=== PATIENT | male | born 1995 | race Caucasian/White ===

== ENCOUNTER 2024-06-09 03:53 | Observation (INO) | payer SELFPAY ==
[2024-06-09] VITALS (16 sets, daily range): BP systolic 113–187; BP diastolic 60–102; PULSE 64–103; RESP 16–20; TEMP 36.3–37.2; O2SAT 91–100; BMI 39.6; BMI 38.7
[2024-06-09 04:22] LABS: Absolute Neutrophil Count 12.8 X10^3/uL (2.0-7.7); Basophil# 0.12 X10^3/uL; Basophil% 0.7 % (0-1); Eosinophil# 0.28 X10^3/uL; Eosinophils% 1.7 % (0-5); Hematocrit 44.6 % (40-54); Hemoglobin 14.8 g/dL (13.0-16.5); Lymphocyte % 11.4 % (19-41); Mean Corp Hgb Conc 33.2 g/dL (32-36); Mean Corpuscular Hgb 28.4 pg (27.0-32.0); Mean Corpuscular Volume 85.4 fL (80-94); Mean Platelet Vol. 10.8 fl (6.2-12.0); Monocyte# 1.47 X10^3/uL; Monocyte% 8.8 % (0-10); NRBC Flagged by Analyzer 0 % (0-5); Neutrophil # 12.75 X10^3/uL (2.7-7.7); Neutrophil % 76.7 % (47-70); Platelet Count 317 K/mm3 (150-450); RBC Distribution Width SD 39.7 fl (35.1-43.9); Red Blood Count 5.22 M/mm3 (4.6-6.2); White Blood Count 16.6 K/mm3 (4.4-11.0)
[2024-06-09 04:23] LABS: Mucous, Urine 0 SEEN /hpf (<or=2+); Red Blood Cells-Urine 0 SEEN /hpf (0-5); Squamous Epithelial Cells - UA 0 SEEN /hpf (0-5)
[2024-06-09] MEDS: 0.9% Normal Saline (1000mL) 1,000 ML 999 ML IV (04:24)
[2024-06-09] MEDS: Ketorolac 30 MG/ML Syringe IV (04:24)
[2024-06-09 04:25] LABS: Color, Urine Yellow (Yellow); Glucose, Dipstick Normal (Normal); Ketone-Dipstick Negative (Negative); Leukocyte Esterase-Dipstick Negative /ul (Negative); Nitrite-Dipstick Negative (Negative); Occult Blood-Urine Negative /ul (Negative); Protein-Dipstick Negative (Negative); Specific Gravity, Urine 1.015 (1.002-1.030); Urine Bilirubin Dipstick Negative (Negative); Urine Clarity Clear (Clear); Urine Urobilinogen Normal (Normal)
--- NOTE | 2024-06-09 04:32 | CT_ITS ---
PROCEDURE: CT ABDOMEN AND PELVIS WITH INTRAVENOUS CONTRAST REASON FOR EXAM: RIGHT LOWER QUADRANT PAIN TECHNIQUE: Contiguous axial scans of 2.5 mm slice thicknesses. Sagittal and coronal reconstruction images were obtained. One or more dose reduction techniques were used (e.g., automated exposure control, adjustment of mA and/or kv according to patient size, use of iterative reconstruction technique). IV CONTRAST: ISOVUE 370, 94 ML COMPARISON: None. FINDINGS: Lung bases: Mild hypoventilatory changes dependently. Liver: Unremarkable. Gallbladder: Unremarkable. Spleen: Unremarkable. Pancreas: Unremarkable. Adrenals: Unremarkable. Kidneys: Unremarkable. Bladder: Unremarkable. Reproductive Organs: Unremarkable. Bowel: Mild diverticulosis in the sigmoid. Appendix: Appendix measures 0.9 cm in diameter, axial image 133, coronal image 63. no periappendiceal inflammation or abscess. Lymph nodes: No suspicious lymph node enlargement. Vasculature: Major vascular structures are unremarkable. Peritoneum / Retroperitoneum: No ascites. No free air. Bones: Unremarkable. CT/Abdomen/Pelvis W IV Cont ONLY IMPRESSION: 1. MAXIMUM DIAMETER OF THE APPENDIX IS 0.9 CM. THIS RAISES CONCERN FOR MILD A PPENDICITIS. 2. MILD DIVERTICULOSIS. Reading Location: [facility]
[2024-06-09 04:35] LABS: Anion Gap 8 (5-15); BUN 9 mg/dL (7-18); BUN/Creat Ratio 9.3 RATIO (10-20); Calcium,Total 9.4 mg/dL (8.5-10.1); Chloride 104 mmol/L (98-107); Creatinine, Serum 0.97 mg/dL (0.70-1.30); EST Glomerular Filtration Rate 98 mL/min (>60); Est Glom Filt Rate - Afr Amer 119 mL/min (>60); Estimated Creatinine Clearance 137.24 ml/min; Glucose 87 mg/dL (74-106); Potassium 3.6 mmol/L (3.5-5.1); Sodium Level 137 mmol/L (136-145)
[2024-06-09 05:39] LABS: White Blood Cells 0-5 SEEN /hpf (0-5)
[2024-06-09 05:40] LABS: Bacteria RARE /hpf (None Seen)
--- NOTE | 2024-06-09 06:53 | EDS_ITS ---
HPI History of Present Illness Chief Complaint: Abd Pain Informant: patient and spouse/S.O. Narrative Narrative: Patient is a 29-year-old male with no significant past medical history. He states he went to bed normally on Friday night and then awoke around 1 AM Friday morning with sharp pain in the right lower abdomen. He states that there has been no recent trauma or excessive activity. He denies any hematuria or dysuria. He states has been no fevers or chills. He reports that he waited a few hours at home to see if the pain would resolve but it did not do so and secondary to this he comes in for evaluation. [facility] Medical History no medical history no medical history Home Medications ?Medication ?Instructions ?Recorded ?Last Taken ?Type NK 06/09/24 Unknown History Allergy/AdvReac Type Severity Reaction Status Date / Time No Known Allergies Allergy Verified 06/09/24 03:53 Family History (Updated 06/09/24 @ 03:56 by Josh Nesbitt) Other Diabetes Surgical History no surgical history Social History Smoking Status: Never smoker [facility] ED Constitutional Constitutional ED: Denies chills or fever(s) ENT ENT ED: Denies sore throat Cardiovascular Cardiovascular: Denies chest pain Respiratory/Chest Respiratory/Chest: Denies cough or dyspnea Gastrointestinal Gastrointestinal: Reports abdominal pain; Denies diarrhea, nausea or vomiting Genitourinary Genitourinary ED: Denies dysuria or hematuria Musculoskeletal Musculoskeletal: Denies back pain Integumentary Denies rash Neurologic Neurologic: Denies headache(s) Hematologic/Lymphatic Hematologic/Lymphatic: Denies easy bleeding or easy bruising EXAM Physical Exam Const Vital Signs: 06/09/24 03:53 06/09/24 05:49 Temperature 97.8 F Temperature Source Oral Pulse Rate 98 70 Respiratory Rate 18 19 H Blood Pressure 150/91 H 187/92 H Blood Pressure Mean 110 123 Pulse Ox 96 99 Oxygen Delivery Method Room Air Room Air Positive well nourished, well developed and obese General Appearance ED: well developed; Negative for pallor Nutritional Appearance: obese HEENT Reports moist mucous membranes HEENT Narrative: No signs of infection noted in the posterior pharynx Eyes PERRL and EOMs intact bilaterally General Eye ED: Negative for scleral icterus Neck supple Resp normal respiratory effort and clear to auscultation bilaterally Cardio regular rate and regular rhythm Rate: other Other Details: Heart is regular rate and rhythm without murmurs rubs or gallops Radial and carotid pulses are equal and symmetric GI non-distended and no masses GI Narrative: Abdomen is soft and nondistended with normal active bowel sounds. There is pain with palpation in the right mid and lower abdomen over McBurney's point. There is voluntary guarding at this site. Negative heel strike but positive psoas sign. No pulsatile mass Auscultation: normoactive bowel sounds Palpation: soft Back/Spine Back/Spine Narrative: Mild right CVA pain noted Extremity normal to inspection Neuro oriented x3, CN's II-XII intact bilaterally and no sensory deficits noted Sensorium / Orientation: alert Motor Exam: strength 5/5 throughout Psych mental status grossly normal Skin no rashes or lesions noted and no wounds General Skin Exam: Negative for jaundice or pallor MDM MDM MDM Narrative Medical decision making narrative: Patient presented to the ER hypertensive otherwise stable vitals. He reported pain beginning at 1 AM in the right side of his abdomen. Differential diagnosis is for acute appendicitis versus atypical biliary colic versus pancreatitis versus UTI versus kidney stone. Secondary to his basic labs were obtained as well as a urine sample. Urine sample showed no sign of infection or blood going against kidney stone and pyelonephritis or UTI. The white count was elevated at 16 and he does have left shift with elevation to the neutrophil count at 13. Therefore with concern for developing infection a CT with IV contrast was ordered. This showed that his appendix is at the upper limit of normal and there is concern for mild early appendicitis. Secondary to this the case was discussed with general surgeon Dr. Hills. He will evaluate the patient in the ER to decide on disposition. After he was evaluated in the ER Dr. Hills feels that admission for appendectomy is the most appropriate plan of care and therefore he will be started on Zosyn and admitted to the general surgery service for further care History & Record Review Discussion w/independent historian: Patient and Significant other Lab Data Attestation: I reviewed the patient's lab results. Labs: Laboratory Results - last 24 hr 06/09/24 06/09/24 04:02 04:12 WBC 16.6 H RBC 5.22 Hgb 14.8 Hct 44.6 MCV 85.4 MCH 28.4 MCHC 33.2 RDW Std Deviation 39.7 RDW Coeff of Josephine 13.0 Plt Count 317 MPV 10.8 Immature Gran % (Auto) 0.700 Neut % (Auto) 76.7 H Lymph % (Auto) 11.4 L Jasper % (Auto) 8.8 Eos % (Auto) 1.7 Baso % (Auto) 0.7 Absolute Neuts (auto) 12.8 H Absolute Lymphs (auto) 1.90 Nucleated RBC % 0 Sodium 137 Potassium 3.6 Chloride 104 Carbon Dioxide 25.0 Anion Gap 8 BUN 9 Creatinine 0.97 Estim Creat Clear Calc 137.24 Est GFR (MDRD) Af Amer 119 Est GFR (MDRD) Non-Af 98 BUN/Creatinine Ratio 9.3 L Glucose 87 Calcium 9.4 Urine Color Yellow Urine Clarity Clear Urine pH 6.0 Ur Specific [place] 1.015 Urine Protein Negative Urine Glucose (UA) Normal Urine Ketones Negative Urine Occult Blood Negative Urine Nitrite Negative Urine Bilirubin Negative Urine Urobilinogen Normal Ur Leukocyte Esterase Negative Urine RBC 0 SEEN Urine WBC 0-5 SEEN Ur Squamous Epith Cells 0 SEEN Urine Bacteria RARE Urine Mucus 0 SEEN Radiography Diagnostic Testing: Clinical Impression(s) from Imaging Studies Abdomen/Pelvis CT 06/09/24 04:32 IMPRESSION: 1. MAXIMUM DIAMETER OF THE APPENDIX IS 0.9 CM. THIS RAISES CONCERN FOR MILD APPENDICITIS. 2. MILD DIVERTICULOSIS. Reading Location: [facility] Management Discussion w/another healthcare provider: [employer] Discharge Plan Triage Chief Complaint: Abd Pain ED Provider: Jose Ray Dx/Rx/DC Orders Clinical Impression: Acute appendicitis Prescriptions: No Action NK Primary Care Provider: Care Physician,No Primary Referrals: Care Physician,No Primary [Primary Care Provider] - Print Language: German Disposition Disposition: Acute Care [facility]
[2024-06-09] MEDS: Piperacil/Tazobactam 3.375 GM in 0.9% Normal Saline (50mL MB+) 50 ML IV (07:14)
--- NOTE | 2024-06-09 07:21 | HP.PCM_ITS ---
HPI - General General Date of Admission: 06/09/24 HPI Narrative JUNAID ANDINO, is a 29 M who presents to [facility] with complaints of pain that began approximately 6 hours ago. Patient states this is the worst pain of his life and shares that he allowed it to continue for approximately an hour and a half before he simply could not bear it any longer. He states that he does not normally make a lot of discomfort but this pain brought tears in his eyes. He woke his and presented to the emergency department. He notes that the pain has been localized to the right lower abdomen since its onset. He also notes that moving seems to make it worse. He is not aware of any fevers he may have experienced. He denies any nausea. He confirms he had normal bowel movement last evening. He has had no similar symptoms in the past and denies any sick contacts. ED workup notable for CBC that shows leukocytosis of 16.6. CT imaging of the abdomen pelvis showed evidence of a 9 mm appendix without periappendiceal inflammatory change. Patient denies any past medical or past surgical history. [facility] Medical History no medical history Home Medications ?Medication ?Instructions ?Recorded ?Last Taken ?Type NK 06/09/24 Unknown History Allergy/AdvReac Type Severity Reaction Status Date / Time No Known Allergies Allergy Verified 06/09/24 03:53 Family History (Updated 06/09/24 @ 03:56 by Josh Nesbitt) Other Diabetes Surgical History no surgical history Social History Smoking Status: Never smoker Vital Signs Vital Signs Vital Signs: 06/09/24 03:53 06/09/24 05:49 06/09/24 07:00 Temperature 97.8 F Temperature Source Oral Pulse Rate 98 70 72 Respiratory Rate 18 19 H Blood Pressure 150/91 H 187/92 H 156/102 H Blood Pressure Mean 110 123 120 Pulse Ox 96 99 98 Oxygen Delivery Method Room Air Room Air Weight Weight: 253 lb 1.451 oz Body Mass Index (BMI) 39.6 Physical Exam Const alert and well nourished Constitutional Narrative: Mild distress from discomfort Resp normal respiratory effort GI GI Narrative: Nondistended, soft, tender to palpation over McBurney's point. Negative Rovsing. Positive obturator and psoas sign. Results Lab / Micro Data 06/09/24 04:02 06/09/24 04:02 Labs: Laboratory Results - last 24 hr 06/09/24 04:02: WBC 16.6 H, RBC 5.22, Hgb 14.8, Hct 44.6, MCV 85.4, MCH 28.4, MCHC 33.2, RDW Std Deviation 39.7, RDW Coeff of Josephine 13.0, Plt Count 317, MPV 10.8, Immature Gran % (Auto) 0.700, Neut % (Auto) 76.7 H, Lymph % (Auto) 11.4 L, Early % (Auto) 8.8, Eos % (Auto) 1.7, Baso % (Auto) 0.7, Absolute Neuts (auto) 12.8 H, Absolute Lymphs (auto) 1.90, Nucleated RBC % 0, Sodium 137, Potassium 3.6, Chloride 104, Carbon Dioxide 25.0, Anion Gap 8, BUN 9, Creatinine 0.97, Estim Creat Clear Calc 137.24, Est GFR (MDRD) Af Amer 119, Est GFR (MDRD) Non-Af 98, BUN/Creatinine Ratio 9.3 L, Glucose 87, Calcium 9.4 06/09/24 04:12: Urine Color Yellow, Urine Clarity Clear, Urine pH 6.0, Ur Specific Libby 1.015, Urine Protein Negative, Urine Glucose (UA) Normal, Urine Ketones Negative, Urine Occult Blood Negative, Urine Nitrite Negative, Urine Bilirubin Negative, Urine Urobilinogen Normal, Ur Leukocyte Esterase Negative, Urine RBC 0 SEEN, Urine WBC 0-5 SEEN, Ur Squamous Epith Cells 0 SEEN, Urine Bacteria RARE, Urine Mucus 0 SEEN Imaging Radiology Impression Abdomen/Pelvis CT 06/09/24 04:32 IMPRESSION: 1. MAXIMUM DIAMETER OF THE APPENDIX IS 0.9 CM. THIS RAISES CONCERN FOR MILD APPENDICITIS. 2. MILD DIVERTICULOSIS. Reading Location: [facility] Assessment & Plan Assessment/Plan (1) Acute appendicitis: PLAN: Patient is a 29-year-old male who presents with acute onset right lower quadrant discomfort with signs and symptoms otherwise characteristic of early acute appendicitis. Given this diagnosis I discussed management to include use of antibiotics and surgical appendectomy. Procedure for a laparoscopic appendectomy was described in detail. Patient provided his verbal consent to proceed as described. I then went on to describe that I would hope for discharge to home shortly following the procedure with an expectation for outpatient follow-up to review wound healing and pathology. We will look to the operating room schedule to see when we may proceed for this planned operation. In the meantime emergency medicine to dose patient with 3.375 Zosyn empirically. Junaid Hills MD General Surgery Endocrine Surgery Pager: [facility] [address] [place] [address], [address] [place] [address] Office: [phone] Charges/Coding Visit Charges Inpatient E&M: 79745 Init Hosp L2
--- NOTE | 2024-06-09 08:00 | APP_PTH ---
PATIENT: JUNAID ANDINO LOC: [facility] U#:[id number] AGE/SX: 29/M ROOM: AR317 RE06/09/[address]: Dr. Junaid Hills MD : 1995 BED: 1 DIS: 06/09/2024 SPEC #: [id number] RECD: 06/09/24 17:31 STATUS: MAXI LARISA #: [id number] ARLETH: 06/09/24 08:[address]: Junaid Hills DEPT: SURGICAL PATHOLOGY RECD BY: Julieta Ketn ENTERED: 06/10/24 07:30 SP TYPE: APPENDIX OTHR DR: No Primary Care Phys Tissues: Appendix, NOS Procedures: Surgery Specimen Level III HEADER OPERATION: Laparoscopic appendectomy PRE-OP DIAGNOSIS: Acute appendicitis TISSUE SUBMITTED: Appendix MICROSCOPIC DIAGNOSIS Appendix, appendectomy: Acute appendicitis and periappendicitis. Three benign periappendiceal lymph nodes. SJ.mr 06/11/2024 MICROSCOPIC DESCRIPTION Slides are reviewed. GROSS DESCRIPTION Received in fixative is one container labeled with the patient's name and designated appendix. The specimen consists of an appendix measuring 3 cm in length and up to 0.6 cm in diameter. The attached periappendiceal adipose tissue measures up to 1.5 cm in width. Section of periappendiceal adipose tissue reveals focally congested surfaces. The serosa is congested. No obvious perforation is identified. The lumen is filled with fecal material. No fecalith is identified. Entire specimen is submitted in three cassettes. Cassette 1 contains appendix tip and most proximal portion. / KASSY: 06/10/2024 TC:2 CPT: 13266
[2024-06-09] MEDS: 0.9% Normal Saline (1000mL) 1,000 ML 125 ML IV (10:08)
--- NOTE | 2024-06-09 13:01 | PRE.ANES_ITS ---
ASA Classification* ASA Classification ASA Classification: 3 Assessment & Plan Anesthesia* Anesthesia Assessment Anesthesia Assessment: Discussed sedation and/or anesthesia options, risks, benefits, and alternatives with patient/parents/legal guardian/POA. Questions invited. The patient/parents/legal guardian/POA seems to understand and agrees to proceed with anesthesia plan. Reviewed the physical assessment, medical history, allergy history and patient home medications list prior to surgery/procedure/anesthetic and documented any changes. Performed airway and anesthesia risk assessments. Anesthesia Type Anesthesia Type: General Anesthesia Focused Assessment* Temperature: 97.8 F Pulse Rate: 76 Blood Pressure: 113/73 Respiratory Rate: 18 Pulse Ox: 98 Airway Assessment Mouth opens: >3 cm Mallampati Score: II Focused Labs Anesthesia Preop lab: CBC WBC 16.6 K/mm3 (4.4-11.0) H 06/09/24 04:02 5 RBC 5.22 M/mm3 (4.6-6.2) 06/09/24 04:02 06/09/24 Hgb 14.8 g/dL (13.0-16.5) 06/09/24 04:02 06/09/24 Hct 44.6 % (40-54) 06/09/24 04:02 06/09/24 Plt Count 317 K/mm3 (150-450) 06/09/24 04:02 06/09/24 CHEMISTRY Potassium 3.6 mmol/L (3.5-5.1) 06/09/24 04:02 06/09/24 Sodium 137 mmol/L (136-145) 06/09/24 04:02 06/09/24 BUN 9 mg/dL (7-18) 06/09/24 04:02 06/09/24 Creatinine 0.97 mg/dL (0.70-1.30) 06/09/24 04:02 06/09/24 Glucose 87 mg/dL (74-106) 06/09/24 04:02 06/09/24 COAG Pre-Assessment Diagnosis/Proposed Procedure Planned Operative Procedure(s): laproscopic appendectomy Anesthesia History Anesthesia History - database administrator: Anesthesia History - database administrator Hx Hospitalization Any Problems With Anesthesia No 06/09/24 08:51 Cholinesterase deficiency No 06/09/24 08:51 You/Your Family Experience No 06/09/24 08:51 fever (hyperthermia) with Relationship Recent Exposure to Contagious No 06/09/24 08:51 Disease Does patient have nerve No 06/09/24 08:51 stimulator Patient instructed to have device shut off --Does patient have Pacemaker No 06/09/24 11:52 or ICD? When Was Last Pacemaker Check QUESTION #4 FULL TEXT: You/Your Family Experience fever (hyperthermia) with Anesthesia Last Oral Intake Last Oral intake: Last Oral Intake NPO since 03:00 06/09/24 11:52 Meds taken in AM with sips of water? Meds patient instructed to take am of surgery PONV PONV - database administrator: PONV - database administrator Female HX of Motion Sickness HX of N/V After Surgery Non-Smoker Duration of Surgery greater than 60 minutes Number of Risk Factors PONV Score Height & Weight Height & Weight: Anesthesia: Height & Weight Height 5 ft 7 in 06/09/24 11:52 Weight: 112.2 kg 06/09/24 11:52 Body Mass Index (BMI) 38.7 06/09/24 11:52 Respiratory Assessment Respiratory Assessment - database administrator: Respiratory Tract Infection Hx - database administrator Hx Respiratory Tract Infection No 06/09/24 08:51 STOP Sleep Apnea STOP Sleep Apnea - database administrator: STOP Sleep Apnea - database administrator Hx Hypertension No 06/09/24 08:44 Hx Sleep Apnea No 06/09/24 08:44 CPAP BIPAP Do you snore loudly (louder Yes 06/09/24 08:44 than talking or can be heard Do you often feel tired/ No 06/09/24 08:44 fatigued/ sleepy during daytime? Has anyone observed you stop Yes 06/09/24 08:44 breathing during sleep? STOP Results Positive 06/09/24 08:44 QUESTION #5 FULL TEXT : Do you snore loudly (louder than talking or can be heard through closed doors)? 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 Specify any problems Hx of Preganancy in last 3 N/A 06/09/24 08:44 Months Nurse Filling Out Transfusion SHESS 06/09/24 08:44 & Questions: Date: 06/09/24 06/09/24 08:44 Time: 08:45 06/09/24 08:44 Patient unable to answer at this time (ie. confused, unrespo /Reproduction History /Reproductive History - database administrator: /Reproductive Hx- database administrator Hx Now Gestational Age (in weeks): EDC: Hx Hx Para Hx Section SAB Active Medications Active Medications: Current Medications Generic Name Dose Route Start Last Admin Trade Name Freq PRN Reason Stop Dose Admin Acetaminophen 500 mg 06/09/24 07:17 Acetaminophen 500 Mg Tablet PO Q6H PRN PRN Pain Score 1-10 Hydromorphone HCl 0.5 mg 06/09/24 07:17 Hydromorphone 0.5 Mg/0.5 Ml Syringe IV Q4H PRN PRN Pain Score 6-10 Sodium Chloride 1,000 mls @ 125 mls/hr 06/09/24 08:00 06/09/24 10:08 IV 06/09/24 23:59 125 mls/hr .Q8H MAO Administration Protocol Sodium Chloride 100 mls @ 15 mls/hr 06/09/24 09:12 IV .Q6H40M PRN Saline Flush Sodium Chloride 100 mls @ 15 mls/hr 06/09/24 09:12 IV .Q6H40M PRN Additional IVPB Infusion Ondansetron HCl 4 mg 06/09/24 07:17 Ondansetron 4 Mg/2 Ml Vial IV Q6H PRN PRN NAUSEA/VOMITING Sodium Chloride 10 - 40 ml 06/09/24 09:12 0.9% Saline Lock 10 Ml Syringe IV UD PRN SALINE FLUSH PFSH Medical History no medical history Home Medications ?Medication ?Instructions ?Recorded ?Last Taken ?Type NK 06/09/24 Unknown History Allergy/AdvReac Type Severity Reaction Status Date / Time No Known Allergies Allergy Verified 06/09/24 03:53 Family History Other Diabetes Surgical History no surgical history Social History Smoking Status: Never smoker Review of Systems (Anesthesia) ROS Narrative System reviewed and no additional complaints, except as documented.
[2024-06-09] MEDS: Bupiv/Epi 0.25% 30 ML Vial (14:38)
--- NOTE | 2024-06-09 14:49 | OP.PCM_ITS ---
Procedures Digestive 40xxx-49xxx: [id number] Laparoscopy appendectomy Operative Report (Standard) Operative Information Date of Procedure: 06/09/24 Pre-Operative Diagnosis: Acute appendicitis Post-Operative Diagnosis: Acute uncomplicated appendicitis Surgery/Procedure Performed: Laparoscopic appendectomy in process inspector: No Type of Anesthesia: General/Supplemental RN Documented Start/Stop Times: Operation Date: 06/09/24 08:00 Case Time Into Pre-Op 06/09/24 12:35 Anesthesia Start 06/09/24 13:31 Into Room 06/09/24 13:31 Procedure Start 06/09/24 14:05 Procedure End 06/09/24 14:46 Anesthesia End 06/09/24 14:55 Out of Room 06/09/24 14:55 Into Recovery 06/09/24 15:00 Procedure Start Time: 14:05 Procedure Stop Time: 14:46 Select all DRAINS/GRAFTS/IMPLANTS that apply: None Estimated Blood Loss: 10 Specimen collected: Yes Description of specimen(s) removed: Appendix Description of surgery: After appropriate identification in the preoperative holding area, the patient was brought to the operating room and placed supine on the operating room table. Antibiotics had been preoperatively administered by emergency medicine and were redosed with 2 g Ancef for skin prophylaxis in the operating room. Patient was then induced with general endotracheal anesthetic. The abdomen was prepped and draped in usual sterile fashion. Formal timeout was conducted to confirm both the patient and the procedure. A supraumbilical incision was made and carried down to the level of the fascia which was sharply opened. After opening the peritoneum in like fashion a finger sweep was made to confirm position, and a balloon trocar was placed and pneumoperitoneum was established to 15 mmHg. Patient was positioned in Trendelenburg with the left side down. 2 additional 5 mm trocars were placed in the left lower quadrant and suprapubic positions. The peritoneum was inspected and there are no signs of inadvertent injury from this Lacey entry. The appendix was visualized with mild inflammation. Using blunt laparoscopic dissection, a window was made in the mesoappendix adjacent to the appendiceal base. The mesoappendix was divided with application of a laparoscopic harmonic. Then the base of the appendix was sealed and amputated with the use of an Endo JESSICA stapler. The appendix was placed in an Endo Catch bag. The staple line was inspected for hemostasis but slight ooze was detected on the lateral aspect of the staple line. I initially placed a Ray-Soumya in the abdomen and applied direct pressure to the site. This resulted in slowing of the oozing but there was still some persistent bleeding so I elected to place a titanium ligaclip across this area and this did result in hemostasis. After hemostasis was confirmed the appendix was removed from the umbilical port site. Pneumoperitoneum was then evacuated and the supraumbilical port site fascia was closed with #1 Vicryl in a [id number] fashion. The port sites were infiltrated with 30 mL local anesthetic. The skin of each port site was closed with 4-0 Monocryl in a subcuticular fashion. Steri-Strips and OpSite dressings were applied. Patient tolerated procedure well without any apparent complications. They were awoken from general anesthetic without issue and transferred to post anesthesia care unit for ongoing recovery. Surgical Findings: Mild inflammation appendix with appendiceal dilation Complications Complications: No Admit VTE Documentation VTE Mechan Device Prophylaxis: SCD's
--- NOTE | 2024-06-09 14:52 | DCINST_ITS ---
Discharge Instructions Diet Discharge Diet: No restrictions DC O2, CPAP, BIPAP needs Home O2 Discharge instructions: No Dressing / Incision Discharge Activity: May Not Drive (No driving while using narcotic pain medication) and May Shower (Postoperative day 1) May shower in (days): 2 Ice area for (Minutes): 20 Lifting Restrictions: No lifting greater than 15 pounds for 2 weeks after surgery Dressing / Incision Call your doctor if your incision/area has: Continuous Slow Oozing, Increased Pain/ Swelling, Increased Redness, Foul Smelling Discharge and Swelling at the incision site Call your doctor if you observe: Fever of 101 or Higher Remove Dressing in: 2 days (Please leave Steri-Strips intact until they fall off spontaneously or are taken off at your follow-up visit) Cleanse incision/area with: Soap & Water Follow Up Care Please Follow Up With: Junaid Hills MD When: 7-10days postop Test Results: Test results from this visit will be discussed in further detail at your follow- up appointment, if applicable. Discharge Plan Admission Admit Date/Time: 06/09/24 07:17 Primary Reason for Your Visit: Appendectomy Attending Provider: Junaid Hills Primary Care Provider: Care Physician,Negra Primary Discharge Orders/Prescriptions Prescriptions: New oxycodone 5 mg tablet 5 mg PO Q6H PRN (Reason: pain) 3 Days Qty: 14 0RF Referrals / Follow Up: Care PhysicianNegra Primary [Primary Care Provider] - Disposition Disposition (needs filled in before D/C Order can be placed): Home, Self Care
--- NOTE | 2024-06-09 15:22 | PCM.POST.ANE ---
Anesthesia: Postop Eval I Current Vital Signs Temperature: 97.4 F Pulse Rate: 97 Blood Pressure: 132/76 Respiratory Rate: 18 Pulse Ox: 97 Oxygen Delivery Method: Nasal Cannula Oxygen Flow Rate (L/min): 2 Assessment Airway patent: Yes Spontaneous unlabored respirations: Yes Mental status: Awake nausea: No Vomiting: No Anesthesia Complication: No Fluid Hydration Crystalloid volume administer (ml): 500 Total IV fluid infused: 500 Progress Note Anesthesia document: Postop Eval 1 completed: Yes
--- NOTE | 2024-06-09 15:23 | PCM.POSTANE2 ---
Anesthesia Postop Eval I Sum Postop Eval Completion status Anesthesia document: Postop Eval 1 completed: Yes Anesthesia Postop Eval I Summary Anesthesia Postop Eval I Summary: Anesthesia Postop Eval I: Assessment Summary Airway patent Yes 06/09/24 15:23 Spontaneous unlabored Yes 06/09/24 15:23 respirations Mental status Awake 06/09/24 15:23 nausea No 06/09/24 15:23 Vomiting No 06/09/24 15:23 Anesthesia Postop Eval I: Fluid Summary Crystalloid volume administer 500 06/09/24 15:23 (ml) Colloids volume administered ( ml) Blood Product volume administered (ml) Total IV fluid infused 500 06/09/24 15:23 Anesthesia Postop Eval I: Summary Notes Anesthesia Complication No 06/09/24 15:23 Anesthesia Complication Comment: Post-operative progress note Anesthesia: Postop Eval II Evaluation Mental status: Awake Pain Level: 1 nausea: No Vomiting: No
--- NOTE | 2024-06-09 15:30 | PCM.POST.ANE ---
Anesthesia: Postop Eval I Current Vital Signs Temperature: 97.4 F Pulse Rate: 103 Blood Pressure: 145/75 Respiratory Rate: 16 Pulse Ox: 99 Oxygen Delivery Method: Nasal Cannula Assessment Airway patent: Yes Spontaneous unlabored respirations: Yes Mental status: Awake nausea: No Vomiting: No Anesthesia Complication: No Fluid Hydration Crystalloid volume administer (ml): 2,000 Total IV fluid infused: 2,000 Progress Note Anesthesia document: Postop Eval 1 completed: Yes
[2024-06-09] MEDS: oxyCODONE 5 MG Tablet PO (17:26)
[2024-06-09] MEDS: Acetaminophen 500 MG Tablet PO (17:27)
== END 2024-06-09 18:20 | disposition home or self-care (01) ==
LOC: ED 07:24 → MS3 07:53
PROVIDERS: Admitting Provider Surgery; Emergency Provider Emergency Medicine; Visit Provider Surgery
PROC: 0DTJ4ZZ Resection of Appendix, Percutaneous Endoscopic Approach (ICD-10-PCS; CPT 44970; principal; 2024-06-09 07:40)
DX: K35.80 Unspecified acute appendicitis (principal)
CPT/HCPCS: 44970; 00840; 74177; 80048; 81001; 85025; 88304; 96365; 96375; 99221; 99283; Q9967; A4216; G0378; J2405

== ENCOUNTER 2024-06-11 09:04 | Observation (INO) | payer SELFPAY ==
[2024-06-11] VITALS (14 sets, daily range): BP systolic 133–176; BP diastolic 75–109; PULSE 85–127; RESP 14–20; TEMP 36.6–38.3; O2SAT 79–98; BMI 38.0
--- NOTE | 2024-06-11 09:53 | EX.ED.DYSGE1 ---
HPI History of Present Illness Chief Complaint: Fever Informant: patient Onset/Context/Timing Onset: Yesterday Context: Gradual Onset Timing: Continuous Quality: Fever Location: Generalized Worsened by: Coughing Relieved by: Nothing Narrative Narrative: Patient presents with fever that began yesterday. Patient had recent appendectomy 3 days ago. Patient denies any abdominal pain. Patient denies any nausea or vomiting. Patient does admit to a cough. Patient states his fever was up to 102 at home. Patient also admits to some rhinorrhea. Patient states he had some upper respiratory congestion prior to his appendectomy. Patient denies any diarrhea. Patient denies any dysuria or hematuria. PFSH PFSH Medical History no medical history no medical history Home Medications ?Medication ?Instructions ?Recorded ?Last Taken ?Type oxycodone 5 mg tablet 5 mg PO Q6H PRN pain 3 days #14 06/09/24 Unknown Rx tabs Allergy/AdvReac Type Severity Reaction Status Date / Time No Known Allergies Allergy Verified 06/11/24 09:05 Family History Other Diabetes Surgical History Hx of appendectomy Social History Smoking Status: Never smoker ROS ROS ED Constitutional Constitutional ED: Reports fever(s); Denies chills Eyes Eyes: Denies blurry vision or change in vision ENT ENT ED: Reports rhinorrhea; Denies sore throat Cardiovascular Cardiovascular: Denies chest pain or palpitations Respiratory/Chest Respiratory/Chest: Reports cough; Denies dyspnea Gastrointestinal Gastrointestinal: Denies nausea or vomiting Genitourinary Genitourinary ED: Denies dysuria or hematuria Musculoskeletal Musculoskeletal: Denies back pain or neck pain Integumentary Denies abscess or rash Neurologic Neurologic: Denies headache(s) or weakness Allergic/Immunologic Allergic/Immunologic ED: Denies mouth swelling or urticaria EXAM Physical Exam Const Vital Signs: 06/11/24 09:06 06/11/24 09:07 06/11/24 09:19 Temperature 101 F H 101 F H Temperature Source Oral Oral Pulse Rate 127 H 127 H Respiratory Rate 18 18 Respiratory Effort Normal Non-Labored Respiratory Pattern Normal Blood Pressure 133/88 H 133/88 H Blood Pressure Mean 103 103 Pulse Ox 95 95 Oxygen Delivery Method Room Air Room Air Oxygen Flow Rate (L/min) 06/11/24 10:07 06/11/24 11:00 06/11/24 11:02 Temperature 101 F H 99.5 F H Temperature Source Oral Oral Pulse Rate 103 H 100 Respiratory Rate 18 17 Respiratory Effort Respiratory Pattern Blood Pressure 148/75 H 158/97 H Blood Pressure Mean 99 117 Pulse Ox 94 96 79 Oxygen Delivery Method Room Air Nasal Cannula Room Air Oxygen Flow Rate (L/min) 2 06/11/24 11:02 06/11/24 12:00 06/11/24 13:00 Temperature 99.5 F H Temperature Source Oral Pulse Rate 85 86 Respiratory Rate 19 H 19 H Respiratory Effort Respiratory Pattern Blood Pressure 146/93 H 142/100 H Blood Pressure Mean 110 114 Pulse Ox 98 95 96 Oxygen Delivery Method Nasal Cannula Nasal Cannula Nasal Cannula Oxygen Flow Rate (L/min) 3 2 2 06/11/24 13:35 06/11/24 13:54 06/11/24 14:21 Temperature Temperature Source Pulse Rate 97 114 H Respiratory Rate 18 14 Respiratory Effort Respiratory Pattern Normal Blood Pressure 176/109 H Blood Pressure Mean 131 Pulse Ox 84 89 Oxygen Delivery Method Room Air Room Air Oxygen Flow Rate (L/min) 0 Positive well nourished and well developed Constitutional Narrative: BMI of 38.1 General Appearance ED: well developed HEENT Reports moist mucous membranes Neck supple and no JVD Resp normal respiratory effort and clear to auscultation bilaterally Cardio regular rhythm Rate: tachycardic GI Palpation: soft and tender epigastric, LLQ, RLQ, LUQ, RUQ, periumbilical and suprapubic; Negative for guarding Neuro oriented x3, CN's II-XII intact bilaterally and no sensory deficits noted Sensorium / Orientation: alert Motor Exam: strength 5/5 throughout Psych mental status grossly normal MDM MDM MDM Narrative Medical decision making narrative: Differential diagnosis includes urinary tract infection, pneumonia, atelectasis, bowel obstruction, abscess, viral illness, dehydration, and anemia. Chest x-ray will be obtained to assess for pneumonia and atelectasis. CT scan of the abdomen and pelvis will be obtained to assess for bowel obstruction and abscess. CBC will be obtained to assess for leukocytosis and anemia. Basic metabolic profile will be obtained to assess for electrolyte abnormality and renal function. Urinalysis will be obtained to assess for urinary tract infection and hematuria. Lab Data Attestation: I reviewed the patient's lab results. Lab results narrative: CBC was reviewed and was within normal limits. Basic metabolic profile was reviewed and was within normal limits. Urinalysis was reviewed. There is no evidence of urinary tract infection or hematuria. COVID-19 PCR was reviewed and was negative. Influenza PCR was reviewed and was positive for influenza A and negative for influenza B. RSV PCR was reviewed and was negative. Labs: Laboratory Results - last 24 hr 06/11/24 06/11/24 10:49 12:10 WBC 5.8 RBC 4.87 Hgb 13.9 Hct 41.4 MCV 85.0 MCH 28.5 MCHC 33.6 RDW Std Deviation 40.3 RDW Coeff of Josephine 13.0 Plt Count 238 MPV 10.1 Sodium 135 L Potassium 3.5 Chloride 99 Carbon Dioxide 26.0 Anion Gap 10 BUN 8 Creatinine 1.05 Estim Creat Clear Calc 124.06 Est GFR (MDRD) Af Amer 108 Est GFR (MDRD) Non-Af 89 BUN/Creatinine Ratio 7.6 L Glucose 91 Calcium 8.6 Urine Color Yellow Urine Clarity Clear Urine pH 6.5 Ur Specific [place] 1.015 Urine Protein 30 H Urine Glucose (UA) Normal Urine Ketones 5 H Urine Occult Blood 10 H Urine Nitrite Negative Urine Bilirubin Negative Urine Urobilinogen 1 H Ur Leukocyte Esterase Negative Urine RBC 0-5 SEEN Urine WBC 0 SEEN Ur Squamous Epith Cells 0-5 SEEN Urine Bacteria 1+ Urine Mucus 0 SEEN Radiography Chest X-Ray - ED: 2 View, Read by ED Physician, Read by Radiologist and - (Right basilar atelectasis) Diagnostic Testing: PA and lateral chest x-ray was obtained. There are 2 views. On my independent interpretation, lung cantu show right basilar atelectasis. There is normal cardiac silhouette. Bony thorax is normal. There is no acute process noted. Radiologist also interpreted the x-ray and agrees. CT scan of the abdomen and pelvis was obtained. There is right basilar atelectasis. There are scattered sigmoid diverticula noted. There is a fatty liver. There is no evidence of any abscess. There is no free air or free fluid. This was interpreted by the radiologist was also independently reviewed by myself. Management Discussion w/another healthcare provider: Hospitalist Treatment and Re-Evaluation :: Patient was given IV fluids and Tylenol. Patient was given a dose of morphine and Zofran. After the patient was given a dose of morphine, his oxygen saturation dropped to 79% on room air. Patient was placed on oxygen. Patient was given a DuoNeb aerosol. Patient was feeling better on reevaluation. Patient was advised of his findings. Before the patient was to be discharged, patient was given a trial of room air oxygen. Patient dropped to 89% after the DuoNeb aerosol on room air. Because of this, I recommended admission to the hospital. Case was discussed with the hospitalist. She will admit the patient for observation. Patient understood and was agreeable with the plan. All questions were answered. Discharge Plan Triage Chief Complaint: Fever ED Provider: Dorian Soliz Dx/Rx/DC Orders Clinical Impression: Influenza A, Status post laparoscopic appendectomy, Hypoxia Prescriptions: No Action oxycodone 5 mg tablet 5 mg PO Q6H PRN (Reason: pain) 3 Days Qty: 14 0RF Primary Care Provider: Care Physician,No Primary Referrals: Care Physician,No Primary [Primary Care Provider] - Print Language: Sinhala Disposition Disposition: Acute Care [facility]
--- NOTE | 2024-06-11 10:04 | CT_ITS ---
PROCEDURE: ABDOMEN/PELVIS W IV CONT ONLY REASON FOR EXAM: Recent appendectomy. Abdominal pain. History of flu. TECHNIQUE: Abdomen and pelvis CT with intravenous contrast. Coronal and sagittal imaging was obtained as well. IV CONTRAST: 100 cc of Isovue 300. COMPARISON: Comparison is made with prior study dated June 09, 2024. FINDINGS: Lung bases: Increased markings at the right lung base suggestive of atelectasis. Liver: Diffuse fatty infiltration. Gallbladder: Unremarkable. Spleen: Unremarkable. Pancreas: Unremarkable. Adrenals: Unremarkable. Kidneys: Unremarkable. Bladder: Unremarkable. Reproductive Organs: Unremarkable. Bowel: Colonic diverticulosis without diverticulitis. Small hiatal hernia. Appendix: Status post appendectomy. Lymph nodes: No suspicious lymph node enlargement. Vasculature: Major vascular structures are unremarkable. Peritoneum / Retroperitoneum: No ascites. No free air. Bones: Unremarkable. CT/Abdomen/Pelvis W IV Cont ONLY IMPRESSION: Status post appendectomy with postsurgical changes. Mild linear atelectasis at the right lung base. Fatty infiltration of the liver. One or more dose reduction techniques were used (e.g., Automated exposure contr ol, adjustment of the mA and/or kV according to patient size, use of iterative reconstruction technique). Reading Location: [place] [id number]
[2024-06-11] MEDS: 0.9% Normal Saline (1000mL) 1,000 ML 1000 ML IV (10:48)
[2024-06-11] MEDS: Morphine 4 MG/ML Syringe IV (10:49)
[2024-06-11] MEDS: Ondansetron 4 MG/2 ML Vial IV (10:49)
[2024-06-11 11:02] LABS: Hematocrit 41.4 % (40-54); Hemoglobin 13.9 g/dL (13.0-16.5); Mean Corp Hgb Conc 33.6 g/dL (32-36); Mean Corpuscular Hgb 28.5 pg (27.0-32.0); Mean Platelet Vol. 10.1 fl (6.2-12.0); Platelet Count 238 K/mm3 (150-450); RBC Distribution Width SD 40.3 fl (35.1-43.9); Red Blood Count 4.87 M/mm3 (4.6-6.2); White Blood Count 5.8 K/mm3 (4.4-11.0)
--- NOTE | 2024-06-11 11:20 | RAD_ITS ---
PROCEDURE: CHEST PA AND LATERAL REASON FOR EXAM: Abdominal pain. Recent appendectomy. TECHNIQUE: Frontal and lateral views of the chest. COMPARISON: None. FINDINGS: The heart size is normal. The mediastinal contour is unremarkable. Mild degree of right basilar atelectasis. The bones are unremarkable. RAD/Chest PA and Lateral IMPRESSION: Mild degree of right basilar atelectasis. [facility]
[2024-06-11 11:21] LABS: Anion Gap 10 (5-15); BUN 8 mg/dL (7-18); BUN/Creat Ratio 7.6 RATIO (10-20); Calcium,Total 8.6 mg/dL (8.5-10.1); Chloride 99 mmol/L (98-107); Creatinine, Serum 1.05 mg/dL (0.70-1.30); EST Glomerular Filtration Rate 89 mL/min (>60); Est Glom Filt Rate - Afr Amer 108 mL/min (>60); Estimated Creatinine Clearance 124.06 ml/min; Glucose 91 mg/dL (74-106); Potassium 3.5 mmol/L (3.5-5.1); Sodium Level 135 mmol/L (136-145)
[2024-06-11 12:15] LABS: Mucous, Urine 0 SEEN /hpf (<or=2+); White Blood Cells 0 SEEN /hpf (0-5)
[2024-06-11 12:24] LABS: Color, Urine Yellow (Yellow); Glucose, Dipstick Normal (Normal); Ketone-Dipstick 5 mg/dl (Negative); Leukocyte Esterase-Dipstick Negative /ul (Negative); Nitrite-Dipstick Negative (Negative); Occult Blood-Urine 10 /ul (Negative); Protein-Dipstick 30 mg/dl (Negative); Specific Gravity, Urine 1.015 (1.002-1.030); Urine Bilirubin Dipstick Negative (Negative); Urine Clarity Clear (Clear); Urine Urobilinogen 1 mg/dl (Normal); Urine pH 6.5 (5.0 - 8.0)
[2024-06-11 12:42] LABS: Bacteria 1+ /hpf (None Seen); Red Blood Cells-Urine 0-5 SEEN /hpf (0-5); Squamous Epithelial Cells - UA 0-5 SEEN /hpf (0-5)
--- NOTE | 2024-06-11 13:40 | ED.RN ---
Pt trialed on RA and desaturated to 84%. Patient placed back on 2L NC. Dr. Soliz notified
[2024-06-11] MEDS: Ipratropium/Albuterol Sulfate 3 ML AMPUL.NEB INHALATION ×2 (13:52→19:50)
--- NOTE | 2024-06-11 14:55 | PCM.HP.STD ---
HPI - General General Date of Service: 06/11/24 Chief Complaint: fevers HPI Narrative DARCY ANDINO, is a 29-year-old male history of appendectomy 06/09/2024 after he came to the ED due to sharp right lower abdominal pain. Since that time he developed fevers that began yesterday without any new or significant abdominal pain however the fever was up to 102 at home and he had some rhinorrhea and some respiratory congestion that he actually reports started prior to his second appendectomy so he presented to the ED. In the ED his oxygen dropped to 79% after he was given pain medication for his postop abdominal pain and repeat after nebulizer and room air was 89% so hospitalist contacted for admission. Of note in the ED he did have CT abdomen pelvis which did not show any new or acute process and his surgeon was contacted who is aware. Patient evaluated at bedside, he reports some chest congestion without particular shortness of breath over several days with fever starting yesterday, has a slight cough without significant production of sputum. Reports he has a headache because of the alarm that keeps going off and said that he has a hard time answering my questions accurately because he has not had any water since this morning but said he was eating and drinking fine before and has no abdominal pain right now and no nausea or diarrhea. Primarily just feels little bit weak and generally unwell. PFSH Medical History no medical history Home Medications ?Medication ?Instructions ?Recorded ?Last Taken ?Type oxycodone 5 mg tablet 5 mg PO Q6H PRN pain 3 days #14 06/09/24 Unknown Rx tabs Allergy/AdvReac Type Severity Reaction Status Date / Time No Known Allergies Allergy Verified 06/11/24 09:05 Family History Other Diabetes Surgical History Hx of appendectomy Social History Smoking Status: Never smoker ROS ROS Narrative General: Fever since yesterday HENT: Little bit of a headache, feels like his throat is dry EYES: Denies changes in vision Resp: Not particularly short of breath, dry cough Cardiac: Denies chest pain GI: Denies abdominal pain, denies changes in bowel, denies nausea/vomiting : Denies changes in urination Extremity: Denies swelling MSK: Feels little weak overall Neuro: Denies any numbness/tingling Heme: Denies any bleeding or bruising Skin: Denies rashes, denies any drainage from his incision sites Psychiatric: No complaints voiced Vital Signs Vital Signs Vital Signs: 06/11/24 09:06 06/11/24 09:07 06/11/24 09:19 Temperature 101 F H 101 F H Temperature Source Oral Oral Pulse Rate 127 H 127 H Respiratory Rate 18 18 Respiratory Effort Normal Non-Labored Respiratory Pattern Normal Blood Pressure 133/88 H 133/88 H Blood Pressure Mean 103 103 Pulse Ox 95 95 Oxygen Delivery Method Room Air Room Air Oxygen Flow Rate (L/min) 06/11/24 10:07 06/11/24 11:00 06/11/24 11:02 Temperature 101 F H 99.5 F H Temperature Source Oral Oral Pulse Rate 103 H 100 Respiratory Rate 18 17 Respiratory Effort Respiratory Pattern Blood Pressure 148/75 H 158/97 H Blood Pressure Mean 99 117 Pulse Ox 94 96 79 Oxygen Delivery Method Room Air Nasal Cannula Room Air Oxygen Flow Rate (L/min) 2 06/11/24 11:02 06/11/24 12:00 06/11/24 13:00 Temperature 99.5 F H Temperature Source Oral Pulse Rate 85 86 Respiratory Rate 19 H 19 H Respiratory Effort Respiratory Pattern Blood Pressure 146/93 H 142/100 H Blood Pressure Mean 110 114 Pulse Ox 98 95 96 Oxygen Delivery Method Nasal Cannula Nasal Cannula Nasal Cannula Oxygen Flow Rate (L/min) 3 2 2 06/11/24 13:35 06/11/24 13:54 06/11/24 14:21 Temperature Temperature Source Pulse Rate 97 114 H Respiratory Rate 18 14 Respiratory Effort Respiratory Pattern Normal Blood Pressure 176/109 H Blood Pressure Mean 131 Pulse Ox 84 89 Oxygen Delivery Method Room Air Room Air Oxygen Flow Rate (L/min) 0 Weight Weight: 110.2 kg Body Mass Index (BMI) 38.0 Physical Exam Narrative General: Alert, oriented, no apparent distress HEENT: Atraumatic, normocephalic Eyes: Anicteric, normal conjunctiva, extraocular movements grossly intact Neck: Supple Respiratory: No significant wheezes or rhonchi, normal respiratory effort Cardiovascular: Low-grade sinus tachycardia GI: Soft Extremities: No significant pitting edema Musculoskeletal: Moving all extremities Neuro: No overt focal neurological deficits Skin: No rashes appreciated Psych: Somewhat irritable Results Lab / Micro Data 06/11/24 10:49 06/11/24 10:49 Labs: Laboratory Results - last 24 hr 06/11/24 10:49: WBC 5.8, RBC 4.87, Hgb 13.9, Hct 41.4, MCV 85.0, MCH 28.5, MCHC 33.6, RDW Std Deviation 40.3, RDW Coeff of Josephine 13.0, Plt Count 238, MPV 10.1, Sodium 135 L, Potassium 3.5, Chloride 99, Carbon Dioxide 26.0, Anion Gap 10, BUN 8, Creatinine 1.05, Estim Creat Clear Calc 124.06, Est GFR (MDRD) Af Amer 108, Est GFR (MDRD) Non-Af 89, BUN/Creatinine Ratio 7.6 L, Glucose 91, Calcium 8.6 06/11/24 12:10: Urine Color Yellow, Urine Clarity Clear, Urine pH 6.5, Ur Specific [place] 1.015, Urine Protein 30 H, Urine Glucose (UA) Normal, Urine Ketones 5 H, Urine Occult Blood 10 H, Urine Nitrite Negative, Urine Bilirubin Negative, Urine Urobilinogen 1 H, Ur Leukocyte Esterase Negative, Urine RBC 0-5 SEEN, Urine WBC 0 SEEN, Ur Squamous Epith Cells 0-5 SEEN, Urine Bacteria 1+, Urine Mucus 0 SEEN Micro: Microbiology 06/11/24 09:20 Mucosa - Nose SARS-CoV-2, Influenza & RSV (PCR) - Final Influenzae A Imaging Radiology Impression Abdomen/Pelvis CT 06/11/24 10:04 IMPRESSION: Status post appendectomy with postsurgical changes. Mild linear atelectasis at the right lung base. Fatty infiltration of the liver. One or more dose reduction techniques were used (e.g., Automated exposure control, adjustment of the mA and/or kV according to patient size, use of iterative reconstruction technique). Reading Location: [facility] Chest X-Ray 06/11/24 11:20 IMPRESSION: Mild degree of right basilar atelectasis. Reading Location: [facility] Assessment & Plan Assessment/Plan (1) Hypoxia: (2) Influenza A: PLAN: Plan # Hypoxia secondary to Influenza A infection and postop atelectasis -Chest x-ray and CT show right basilar atelectasis but no infiltrate appreciated on preliminary reads -Patient was found to be influenza positive however -Nebulizers -Incentive spirometry -Given his chest congestion and symptoms seem to started before the appendectomy not a candidate for Tamiflu # Recent appendectomy -Postop pain control as needed, currently reports no pain -Surgeon aware #DVT ppx: SCDs Karolyn Crow MD Charges/Coding Visit Charges Inpatient E&M: 73333 Init Hosp L1
[2024-06-11] MEDS: 0.9% Normal Saline (1000mL) 1,000 ML 50 ML IV (16:26)
[2024-06-11] MEDS: Acetaminophen 325 MG Tablet 650 MG PO (16:50)
[2024-06-11] MEDS: MELATONIN 3 MG TABLET PO (20:13)
[2024-06-11] MEDS: Senna/Docusate Sodium 1 Tablet 2 TABLET PO (20:13)
[2024-06-12 04:25] VITALS: O2SAT 97
[2024-06-12 04:27] VITALS: BP 149/93; PULSE 100; RESP 18; TEMP 37.1; O2SAT 97
[2024-06-12 06:50] VITALS: PULSE 86; RESP 20; O2SAT 94
[2024-06-12] MEDS: Ipratropium/Albuterol Sulfate 3 ML AMPUL.NEB INHALATION (06:50)
[2024-06-12 07:14] LABS: Anion Gap 9 (5-15); BUN 9 mg/dL (7-18); BUN/Creat Ratio 10.5 RATIO (10-20); Calcium,Total 8.5 mg/dL (8.5-10.1); Chloride 100 mmol/L (98-107); Creatinine, Serum 0.86 mg/dL (0.70-1.30); EST Glomerular Filtration Rate 113 mL/min (>60); Est Glom Filt Rate - Afr Amer 136 mL/min (>60); Estimated Creatinine Clearance 151.39 ml/min; Glucose 92 mg/dL (74-106); Potassium 3.7 mmol/L (3.5-5.1); Sodium Level 132 mmol/L (136-145)
[2024-06-12 07:25] LABS: Absolute Lymphocyte Count 1.28 X10^3/uL (0.83-4.51); Absolute Neutrophil Count 4.6 X10^3/uL (2.0-7.7); Basophil# 0.03 X10^3/uL; Basophil% 0.4 % (0-1); Hemoglobin 13.8 g/dL (13.0-16.5); Lymphocyte # 1.28 X10^3/ul (0.83-4.51); Lymphocyte % 17.9 % (19-41); Mean Corp Hgb Conc 32.9 g/dL (32-36); Mean Corpuscular Hgb 28.1 pg (27.0-32.0); Mean Corpuscular Volume 85.5 fL (80-94); Mean Platelet Vol. 9.9 fl (6.2-12.0); Monocyte# 1.18 X10^3/uL; Monocyte% 16.5 % (0-10); NRBC Flagged by Analyzer 0 % (0-5); Neutrophil # 4.63 X10^3/uL (2.7-7.7); Neutrophil % 64.6 % (47-70); Platelet Count 218 K/mm3 (150-450); RBC Distribution Width CV 12.9 % (11.6-14.6); RBC Distribution Width SD 39.9 fl (35.1-43.9); Red Blood Count 4.91 M/mm3 (4.6-6.2); White Blood Count 7.2 K/mm3 (4.4-11.0)
--- NOTE | 2024-06-12 07:26 | PCM.PN.HOSP ---
Reason for Visit Reason for Visit: Diagnoses Influenza due to other identified influenza virus with other respiratory manifestations (06/11/24) Hypoxemia (06/11/24) Subjective Subjective Patient is a 29-year-old male who underwent laparoscopic appendectomy on 06/09/2024 with fever and generalized malaise. Patient was found to be hypoxic in the emergency department tested positive for influenza A Objective Data Objective Data Vital Signs: Vital Signs Temp Pulse Resp BP Pulse Ox O2 Del Method O2 Flow Rate 98.7 F 86 20 H 149/93 H 94 Room Air 1 06/12/24 04:27 06/12/24 06:50 06/12/24 06:50 06/12/24 04:27 06/12/24 06:50 06/12/24 06:50 06/12/24 04:27 Oxygen Flow Rate (L/min) 1 Oxygen Delivery Method Room Air Weight: 110.087 kg Body Mass Index (BMI) 38.0 Intake & Output: Intake and Output for Last 24 Hours 06/10/24 06/11/24 06/12/24 23:59 23:59 23:59 Intake Total 1000 / 1600 850 / 850 Balance 1000 / 1600 850 / 850 Lab / Micro Data 06/12/24 07:02 06/12/24 05:27 Labs: Laboratory Results - last 24 hr 06/11/24 10:49: WBC 5.8, RBC 4.87, Hgb 13.9, Hct 41.4, MCV 85.0, MCH 28.5, MCHC 33.6, RDW Std Deviation 40.3, RDW Coeff of Josephine 13.0, Plt Count 238, MPV 10.1, Sodium 135 L, Potassium 3.5, Chloride 99, Carbon Dioxide 26.0, Anion Gap 10, BUN 8, Creatinine 1.05, Estim Creat Clear Calc 124.06, Est GFR (MDRD) Af Amer 108, Est GFR (MDRD) Non-Af 89, BUN/Creatinine Ratio 7.6 L, Glucose 91, Calcium 8.6 06/11/24 12:10: Urine Color Yellow, Urine Clarity Clear, Urine pH 6.5, Ur Specific [place] 1.015, Urine Protein 30 H, Urine Glucose (UA) Normal, Urine Ketones 5 H, Urine Occult Blood 10 H, Urine Nitrite Negative, Urine Bilirubin Negative, Urine Urobilinogen 1 H, Ur Leukocyte Esterase Negative, Urine RBC 0-5 SEEN, Urine WBC 0 SEEN, Ur Squamous Epith Cells 0-5 SEEN, Urine Bacteria 1+, Urine Mucus 0 SEEN 06/12/24 05:27: Sodium 132 L, Potassium 3.7, Chloride 100, Carbon Dioxide 23.0, Anion Gap 9, BUN 9, Creatinine 0.86, Estim Creat Clear Calc 151.39, Est GFR (MDRD) Af Amer 136, Est GFR (MDRD) Non-Af 113, BUN/Creatinine Ratio 10.5, Glucose 92, Calcium 8.5 06/12/24 07:02: WBC 7.2, RBC 4.91, Hgb 13.8, Hct 42.0, MCV 85.5, MCH 28.1, MCHC 32.9, RDW Std Deviation 39.9, RDW Coeff of Josephine 12.9, Plt Count 218, MPV 9.9, Immature Gran % (Auto) 0.600, Neut % (Auto) 64.6, Lymph % (Auto) 17.9 L, [place] % (Auto) 16.5 H, Eos % (Auto) 0.0, Baso % (Auto) 0.4, Absolute Neuts (auto) 4.6, Absolute Lymphs (auto) 1.28, Nucleated RBC % 0 Micro: Microbiology 06/11/24 09:20 Mucosa - Nose SARS-CoV-2, Influenza & RSV (PCR) - Final Influenzae A Radiography Diagnostic Testing: Radiology Impression Abdomen/Pelvis CT 06/11/24 10:04 IMPRESSION: Status post appendectomy with postsurgical changes. Mild linear atelectasis at the right lung base. Fatty infiltration of the liver. One or more dose reduction techniques were used (e.g., Automated exposure control, adjustment of the mA and/or kV according to patient size, use of iterative reconstruction technique). Reading Location: [facility]-1 Chest X-Ray 06/11/24 11:20 IMPRESSION: Mild degree of right basilar atelectasis. Reading Location: [facility]--1 Physical Exam Narrative GENERAL: cooperative HEENT: Atraumatic; normocephalic EYES; Anicteric, Normal Conjunctiva NECK; supple, normal thyroid, RESPIRATORY: Diminished to auscultation CARDIOVASCULAR: Regular S1 S2, GI: soft, normoactive bowel sounds, : No Renal angle tenderness; EXTREMITIES: No edema, no clubbing, MUSCULOSKELETAL: no muscle wasting NEURO: Awake; no lateralizing signs. SKIN: No Rash PSYCH; Flat affect Assessment & Plan Assessment/Plan (1) Hypoxia: (2) Influenza A: PLAN: Plan Patient is a 29-year-old male who underwent laparoscopic appendectomy on 06/09/2024 with fever and generalized malaise. Patient was found to be hypoxic in the emergency department tested positive for influenza A 1. Acute hypoxia ? Secondary to combination of postop atelectasis as well as influenza A admitted to regular nursing floor treated symptomatically. Incentive spirometry ordered on admission. Patient not a candidate for Tamiflu 2. Status post laparoscopic appendectomy ? On 06/09/2024 3. Class II obesity with BMI of 38 ? Complicating care weight loss advised 4. Hyponatremia ? 5. DVT prophylaxis ? On enoxaparin
--- NOTE | 2024-06-12 08:39 | DS.PCM_ITS ---
Providers Date of Admission: 06/11/24 Date of Discharge: 06/12/24 Primary Care Physician: No Primary Care Phys Reason For Visit: HYPOXIA 2/2 INFLUENZA Diagnosis Discharge Diagnosis (1) Hypoxia: Status: Acute Code(s): R09.02 - Hypoxemia (2) Influenza A: Status: Acute Code(s): J10.1 - Influenza due to other identified influenza virus with other respiratory manifestations Plan Patient is a 29-year-old male who underwent laparoscopic appendectomy on 06/09/2024 with fever and generalized malaise. Patient was found to be hypoxic in the emergency department tested positive for influenza A 1. Acute hypoxia ? Secondary to combination of postop atelectasis as well as influenza A admitted to regular nursing floor treated symptomatically. Incentive spirometry ordered on admission. Patient not a candidate for Tamiflu 2. Status post laparoscopic appendectomy ? On 06/09/2024 3. Class II obesity with BMI of 38 ? Complicating care weight loss advised 4. Hyponatremia ? Patient did receive IV fluid 5. DVT prophylaxis ? SCDs Medications at Discharge Home Medications oxycodone 5 mg tablet 5 mg PO Q6H PRN pain 3 days #14 tabs 06/09/24 acetaminophen 325 mg tablet 650 mg (2 x 325 mg) PO Q6H PRN PRN Pain 1-10 Or Fever >100.7 #0 tabs 06/12/24 doxycycline hyclate 100 mg capsule 100 mg PO BID #14 caps 06/12/24 guaifenesin 600 mg tablet, extended release 12 hr (Mucinex) 1,200 mg (2 x 600 mg) PO BID #20 tabs 06/12/24 prednisone 20 mg tablet 20 mg PO BID #10 tabs 06/12/24 Hospital Course Summary of Care Provided Minutes Spent on Discharge: 32 Physical Exam Narrative GENERAL: cooperative HEENT: Atraumatic; normocephalic EYES; Anicteric, Normal Conjunctiva NECK; supple, normal thyroid, RESPIRATORY: Diminished to auscultation CARDIOVASCULAR: Regular S1 S2, GI: soft, normoactive bowel sounds, : No Renal angle tenderness; EXTREMITIES: No edema, no clubbing, MUSCULOSKELETAL: no muscle wasting NEURO: Awake; no lateralizing signs. SKIN: No Rash PSYCH; Flat affect Weight / BMI Weight Weight: 110.087 kg Body Mass Index (BMI) 38.0 ABG / Lab / Microbiology Data 06/12/24 07:02 06/12/24 05:27 Laboratory: Laboratory Results - last 24 hr 06/11/24 10:49: WBC 5.8, RBC 4.87, Hgb 13.9, Hct 41.4, MCV 85.0, MCH 28.5, MCHC 33.6, RDW Std Deviation 40.3, RDW Coeff of Josephine 13.0, Plt Count 238, MPV 10.1, S odium 135 L, Potassium 3.5, Chloride 99, Carbon Dioxide 26.0, Anion Gap 10, BUN 8, Creatinine 1.05, Estim Creat Clear Calc 124.06, Est GFR (MDRD) Af Amer 108, Est GFR (MDRD) Non-Af 89, BUN/Creatinine Ratio 7.6 L, Glucose 91, Calcium 8.6 06/11/24 12:10: Urine Color Yellow, Urine Clarity Clear, Urine pH 6.5, Ur Specific [place] 1.015, Urine Protein 30 H, Urine Glucose (UA) Normal, Urine Ketones 5 H, Urine Occult Blood 10 H, Urine Nitrite Negative, Urine Bilirubin Negative, Urine Urobilinogen 1 H, Ur Leukocyte Esterase Negative, Urine RBC 0-5 SEEN, Urine WBC 0 SEEN, Ur Squamous Epith Cells 0-5 SEEN, Urine Bacteria 1+, Urine Mucus 0 SEEN 06/12/24 05:27: Sodium 132 L, Potassium 3.7, Chloride 100, Carbon Dioxide 23.0, Anion Gap 9, BUN 9, Creatinine 0.86, Estim Creat Clear Calc 151.39, Est GFR (MDRD) Af Amer 136, Est GFR (MDRD) Non-Af 113, BUN/Creatinine Ratio 10.5, Glucose 92, Calcium 8.5 06/12/24 07:02: WBC 7.2, RBC 4.91, Hgb 13.8, Hct 42.0, MCV 85.5, MCH 28.1, MCHC 32.9, RDW Std Deviation 39.9, RDW Coeff of Josephine 12.9, Plt Count 218, MPV 9.9, Immature Gran % (Auto) 0.600, Neut % (Auto) 64.6, Lymph % (Auto) 17.9 L, [place] % (Auto) 16.5 H, Eos % (Auto) 0.0, Baso % (Auto) 0.4, Absolute Neuts (auto) 4.6, Absolute Lymphs (auto) 1.28, Nucleated RBC % 0 Microbiology: Microbiology 06/11/24 09:20 Mucosa - Nose SARS-CoV-2, Influenza & RSV (PCR) - Final Influenzae A Radiography Diagnostic Testing: Radiology Impression Abdomen/Pelvis CT 06/11/24 10:04 IMPRESSION: Status post appendectomy with postsurgical changes. Mild linear atelectasis at the right lung base. Fatty infiltration of the liver. One or more dose reduction techniques were used (e.g., Automated exposure control, adjustment of the mA and/or kV according to patient size, use of iterative reconstruction technique). Reading Location: [facility]-1 Chest X-Ray 06/11/24 11:20 IMPRESSION: Mild degree of right basilar atelectasis. Reading Location: [facility] D/C Instructions Discharge Diet: No restrictions Discharge Activity: Return to Normal Activity Call your doctor if you observe: Fever of 101 or Higher, Shortness of breath, Fainting spells and Chest pain DC O2, CPAP, BIPAP Needs Home O2 Discharge instructions: No Meaningful Use Info Meaningful Use Meaningful Use Diagnoses (Choose all that apply): None applicable Ischemic Stroke Statin Dosing Therapy Reference: STATIN DOSE THERAPY REFERENCE: * Patients > 75 years receive moderate or high dose statin therapy. * Patients 75 years or YOUNGER should receive HIGH intensity statin dose unless contraindicated. You will be required to document reason for non-treatment if statin daily dose does not meet guidelines. HIGH DOSE STATIN THERAPY DAILY Atorvastatin > than or = to 40 mg Rosuvastatin > than or = to 20 mg Amlodipine + Atorvastatin > than or = to 2.5/40 mg Ezetimibe + Simvastatin 10/80 mg Simvastatin 80mg Discharge Plan Admission Admit Date/Time: 06/11/24 14:55 Attending Provider: Addy Todd Primary Care Provider: Care Physician,No Primary Consulting Providers: Karolyn Crow Discharge Orders/Prescriptions Prescriptions: New acetaminophen 325 mg Tablet 650 mg PO Q6H PRN PRN (Reason: Pain 1-10 Or Fever >100.7) Qty: 0 0RF doxycycline hyclate 100 mg capsule 100 mg PO BID Qty: 14 0RF prednisone 20 mg tablet 20 mg PO BID Qty: 10 0RF guaifenesin [Mucinex] 600 mg tablet extended release 12hr 1,200 mg PO BID Qty: 20 0RF No Action oxycodone 5 mg tablet 5 mg PO Q6H PRN (Reason: pain) 3 Days Qty: 14 0RF Referrals / Follow Up: [facility] [Provider Group] - Within 2 Weeks Care Physician,No Primary [Primary Care Provider] - Within 2 Weeks Disposition Disposition (needs filled in before D/C Order can be placed): Home, Self Care Charges/Coding Visit Charges Inpatient E&M: 33018 Disch Hosp >30min
[2024-06-12 09:20] VITALS: BP 135/85; PULSE 100; RESP 18; TEMP 37; O2SAT 96
--- NOTE | 2024-06-12 10:08 | CASEMGMT ---
Social Work- SW met with pt to discuss self pat status. Pt reports that he filled out HCAP and makes too much money for assistance. [facility] well as [employer]. SW provided [facility] and [place] information as well. Pt reports no additional needs at this time. CRYSTAL Frias
[2024-06-12] MEDS: Acetaminophen 325 MG Tablet 650 MG PO (11:31)
== END 2024-06-12 13:00 | disposition home or self-care (01) ==
LOC: ED 14:38 → MS3 15:09
PROVIDERS: Admitting Provider Internal Medicine; Emergency Provider Emergency Medicine; Visit Provider Internal Medicine
DX: J10.1 Influenza due to other identified influenza virus with other respiratory manifestations (principal); R09.02 Hypoxemia; E87.1 Hypo-osmolality and hyponatremia; E66.812 Obesity, class 2; Z68.38 Body mass index [BMI] 38.0-38.9, adult; J98.11 Atelectasis; Z98.890 Other specified postprocedural states
CPT/HCPCS: 36415; 71046; 74177; 80048; 81001; 85025; 85027; 87631; 94640; 94668; 96361; 96374; 96375; 99221; 99284; Q9967; A4216; G0378; J2405